=== PATIENT | female | born 1945 | race Caucasian/White ===

== ENCOUNTER 2016-10-12 23:37 | Inpatient (IN) | payer OTHER ==
[~2016-10-12] VITALS: Ht 167.6 cm; Wt 49.0 kg
[~2016-10-12 23:37] MED LIST: ATROVENT INH S2.5 ML NEB; BENADRYL25 MG PO; DALIRESP500 MCG PO; HABITROL 21 MG P1 EA TOP; LEVAQUIN750 MG PO; MEDROL DOSEPAK 24 MG PO; NEURONTIN600 MG PO; OXYCODONE HCL10 MG PO; PRILOSEC20 MG PO; PROTONIX40 MG PO; PROZAC40 MG PO; SPIRIVA HANDIH18 MCG INH; SPIRIVA RESPIMAT4 GM INH; SYMBICORT 16010.2 GM INH; VENTOLIN/PROVE0.5 ML NEB; VITAMIN D400 UNIT PO; VITAMIN E400 UNI1 PO; ZESTRIL20 MG PO; ZITHROMAX250 MG PO
[2016-10-13 02:46] LABS: HEMOGLOBIN 9.5 gm/dl (12.3-15.3); RED BLOOD COUNT 3.14 M/UL (4.00-5.10); WHITE BLOOD COUNT 12.9 K/UL (4.5-11.0)
[2016-10-13 03:47] LABS: BUN/CREATININE RATIO 35 (0-10)
[2016-10-13] MEDS ORDERED: GLEEVEC PO (12:41)
[2016-10-13] MEDS ORDERED: ROXICODONE15 MG PO (12:41)
[2016-10-14 06:28] LABS: HEMOGLOBIN 9.1 gm/dl (12.3-15.3); RED BLOOD COUNT 3.07 M/UL (4.00-5.10); WHITE BLOOD COUNT 11.6 K/UL (4.5-11.0)
[2016-10-14 07:03] LABS: BUN/CREATININE RATIO 43 (0-10)
[2016-10-15 06:47] LABS: BUN/CREATININE RATIO 40 (0-10)
[2016-10-15 06:56] LABS: WHITE BLOOD COUNT 10.1 K/UL (4.5-11.0)
[2016-10-15 06:58] LABS: RED BLOOD COUNT 2.18 M/UL (4.00-5.10)
[2016-10-15 07:03] LABS: HEMOGLOBIN 6.6 gm/dl (12.3-15.3)
[2016-10-16 05:48] LABS: WHITE BLOOD COUNT 8.2 K/UL (4.5-11.0)
[2016-10-16 05:49] LABS: RED BLOOD COUNT 3.28 M/UL (4.00-5.10)
[2016-10-16 05:50] LABS: HEMOGLOBIN 9.6 gm/dl (12.3-15.3)
[2016-10-16 05:59] LABS: BUN/CREATININE RATIO 40 (0-10)
[2016-10-17 06:29] LABS: HEMOGLOBIN 8.5 gm/dl (12.3-15.3); WHITE BLOOD COUNT 8.4 K/UL (4.5-11.0)
[2016-10-17 06:30] LABS: RED BLOOD COUNT 2.88 M/UL (4.00-5.10)
[2016-10-17 06:53] LABS: BUN/CREATININE RATIO 28 (0-10)
[2016-10-18 04:27] LABS: HEMOGLOBIN 7.9 gm/dl (12.3-15.3); RED BLOOD COUNT 2.7 M/UL (4.00-5.10); WHITE BLOOD COUNT 7.5 K/UL (4.5-11.0)
[2016-10-18 04:44] LABS: BUN/CREATININE RATIO 25 (0-10)
[2016-10-19 05:53] LABS: HEMOGLOBIN 7.9 gm/dl (12.3-15.3); RED BLOOD COUNT 2.7 M/UL (4.00-5.10); WHITE BLOOD COUNT 6.7 K/UL (4.5-11.0)
[2016-10-20 05:55] LABS: HEMOGLOBIN 8.4 gm/dl (12.3-15.3)
[2016-12-19] MEDS ORDERED: BENADRYL 25MG C25 MG PO (10:02)
[2016-12-19] MEDS ORDERED: LOVENOX SY40 MG/0.4 SQ (10:03)
[2016-12-19] MEDS ORDERED: PHENERGAN 25 MG25 M1 PO (10:03)
[2016-12-19] MEDS ORDERED: NEURONTIN 300300 MG PO (10:04)
[2016-12-19] MEDS ORDERED: HYDROCODON-ACE1 EAC6 PO (10:34)
[2016-12-19] MEDS ORDERED: PROTONIX40 MG PO (10:34)
[2016-12-19] MEDS ORDERED: DALIRESP500 MCG PO (10:36)
[2016-12-19] MEDS ORDERED: DURAGESIC 50 MCG1 EA TD (10:36)
[2016-12-30] MEDS ORDERED: LOPRESSOR 25 MG25 MG PO (18:25)
== END 2016-10-20 21:07 | DRG 480 ==
LOC: ER1 23:37 → MED SURG 4 10-13 03:59 → M/S 10-13 03:59 → ZEROF 10-13 03:59 → MED SURG 4 10-13 07:50 → ZEROF 10-14 16:29 → MED SURG 4 10-14 16:29 → M/S 10-14 20:25
PROVIDERS: Family Medicine; Internal Medicine; Orthopaedic Surgery; Physician Assistant; ADMIT Hospitalist
PROC: 2W6RXZZ Traction of Left Lower Leg (ICD-10-PCS; principal; 2016-10-14 17:15)
PROC: 0QS706Z Reposition Left Upper Femur with Intramedullary Internal Fixation Device, Open Approach (ICD-10-PCS; principal; 2016-10-14 17:15)
PROC: 0PSJ34Z Reposition Left Radius with Internal Fixation Device, Percutaneous Approach (ICD-10-PCS; 2016-10-15)
PROC: 30233N1 Transfusion of Nonautologous Red Blood Cells into Peripheral Vein, Percutaneous Approach (ICD-10-PCS; 2016-10-15)
DX: S52.612A Displaced fracture of left ulna styloid process, initial encounter for closed fracture (principal); S72.142A Displaced intertrochanteric fracture of left femur, initial encounter for closed fracture; J96.12 Chronic respiratory failure with hypercapnia; C90.00 Multiple myeloma not having achieved remission; J96.11 Chronic respiratory failure with hypoxia; D62 Acute posthemorrhagic anemia; J44.9 Chronic obstructive pulmonary disease, unspecified; M79.672 Pain in left foot; F17.210 Nicotine dependence, cigarettes, uncomplicated; W18.39XA Other fall on same level, initial encounter; Y93.89 Activity, other specified; Y92.003 Bedroom of unspecified non-institutional (private) residence as the place of occurrence of the external cause; E83.42 Hypomagnesemia; R53.81 Other malaise; D53.9 Nutritional anemia, unspecified; E87.6 Hypokalemia; R25.1 Tremor, unspecified; I48.0 Paroxysmal atrial fibrillation; F41.9 Anxiety disorder, unspecified; I27.2 Other secondary pulmonary hypertension; I10 Essential (primary) hypertension; K57.30 Diverticulosis of large intestine without perforation or abscess without bleeding; K21.9 Gastro-esophageal reflux disease without esophagitis; I07.1 Rheumatic tricuspid insufficiency; Z72.3 Lack of physical exercise; Z86.73 Personal history of transient ischemic attack (TIA), and cerebral infarction without residual deficits; Z80.1 Family history of malignant neoplasm of trachea, bronchus and lung; Z82.49 Family history of ischemic heart disease and other diseases of the circulatory system; Z88.6 Allergy status to analgesic agent; Z88.5 Allergy status to narcotic agent; Z79.899 Other long term (current) drug therapy; Z91.14 Patient's other noncompliance with medication regimen; Z99.81 Dependence on supplemental oxygen; Z87.19 Personal history of other diseases of the digestive system
CPT/HCPCS: 29125; 36415; 36430; 72192; 73090; 73110; 73502; 73552; 76000; 80048; 80053; 80162; 83735; 84132; 85014; 85018; 85025; 85027; 85610; 86850; 86900; 86901; 86920; 93005; 94640; 94660; 94664; 96374; 96375; 96376; 97116; 97530; 97535; 99284; C1713; C1769; J0690; J1650; J2250; J2270; J2370; J2405; J3010; J7030; J7050; J7120; P9016; Q0163; S0088

== ENCOUNTER 2016-10-24 22:27 | Observation (INO) | payer OTHER ==
[~2016-10-24] VITALS: Ht 167.6 cm; Wt 59.0 kg
[~2016-10-24 22:27] MED LIST changes: +GLEEVEC PO; +ROXICODONE15 MG PO
[2016-10-25 00:24] LABS: HEMOGLOBIN 8.3 gm/dl (12.3-15.3); RED BLOOD COUNT 2.82 M/UL (4.00-5.10); WHITE BLOOD COUNT 9.1 K/UL (4.5-11.0)
[2016-10-25 00:45] LABS: BUN/CREATININE RATIO 37 (0-10)
[2016-10-26 05:55] LABS: HEMOGLOBIN 8.4 gm/dl (12.3-15.3); RED BLOOD COUNT 2.85 M/UL (4.00-5.10); WHITE BLOOD COUNT 7.2 K/UL (4.5-11.0)
[2016-10-26 06:15] LABS: BUN/CREATININE RATIO 23 (0-10)
[2016-10-26] MEDS ORDERED: LOVENOX SY40 MG/0.4 SQ ×2 (15:37→15:39)
[2016-10-26] MEDS ORDERED: NEURONTIN 300300 MG PO (15:51)
[2016-10-26] MEDS ORDERED: IRON325 M1 PO (15:51)
[2016-10-26] MEDS ORDERED: LANOXIN TAB0.125 MG PO (15:52)
[2016-10-26] MEDS ORDERED: SYMBICORT 160-1 INHA INH (15:52)
[2016-10-26] MEDS ORDERED: KLONOPIN TAB 00.5 MG PO (15:52)
[2016-10-26] MEDS ORDERED: PERCOCET 10-321 EACH PO (15:52)
[2016-10-26] MEDS ORDERED: LOPRESSOR 25 MG25 MG PO (15:53)
[2016-10-26] MEDS ORDERED: PHENERGAN 25 MG25 M1 PO (15:53)
[2016-10-26] MEDS ORDERED: ELIQUIS5 MG PO (15:53)
[2016-10-26] MEDS ORDERED: MULTIVITAMINS1 EAC1 PO (15:53)
[2016-12-19] MEDS ORDERED: BENADRYL 25MG C25 MG PO (10:02)
[2016-12-19] MEDS ORDERED: LOVENOX SY40 MG/0.4 SQ (10:03)
[2016-12-19] MEDS ORDERED: PHENERGAN 25 MG25 M1 PO (10:03)
[2016-12-19] MEDS ORDERED: NEURONTIN 300300 MG PO (10:04)
[2016-12-19] MEDS ORDERED: PROTONIX40 MG PO (10:34)
[2016-12-19] MEDS ORDERED: HYDROCODON-ACE1 EAC6 PO (10:34)
[2016-12-19] MEDS ORDERED: DURAGESIC 50 MCG1 EA TD (10:36)
[2016-12-19] MEDS ORDERED: DALIRESP500 MCG PO (10:36)
[2016-12-30] MEDS ORDERED: LOPRESSOR 25 MG25 MG PO (18:25)
== END 2016-10-26 16:20 | disposition home or self-care (01) ==
LOC: ER1 22:27 → M/S 10-25 09:32 → ZEROF 10-25 09:32 → M/S 10-25 17:08
PROVIDERS: Student in an Organized Health Care Education/Training Program; ADMIT Legal Medicine
DX: R07.9 Chest pain, unspecified (principal); R60.0 Localized edema; S72.002A Fracture of unspecified part of neck of left femur, initial encounter for closed fracture; S52.92XA Unspecified fracture of left forearm, initial encounter for closed fracture; I48.0 Paroxysmal atrial fibrillation; J44.9 Chronic obstructive pulmonary disease, unspecified; D69.6 Thrombocytopenia, unspecified; R06.02 Shortness of breath; D64.9 Anemia, unspecified; F17.210 Nicotine dependence, cigarettes, uncomplicated; Z79.899 Other long term (current) drug therapy; Z79.891 Long term (current) use of opiate analgesic; Z87.19 Personal history of other diseases of the digestive system; Z87.01 Personal history of pneumonia (recurrent); Z86.010 Personal history of colon polyps; Z98.41 Cataract extraction status, right eye; Z98.42 Cataract extraction status, left eye; Z90.89 Acquired absence of other organs; Z88.6 Allergy status to analgesic agent; Z88.8 Allergy status to other drugs, medicaments and biological substances
CPT/HCPCS: 96372; ECHO; 36415; 71010; 78452; 80048; 80053; 80061; 80162; 81001; 82550; 82553; 83874; 84484; 85025; 85027; 85379; 85610; 85730; 87077; 87086; 87186; 93017; 93306; 93971; 94664; 96375; 97535; 99285; A9502; G0378; J0696; J1650; J2270; J2405; J2785; J7030; J7050; Q0163; Q9963

== ENCOUNTER 2016-11-06 11:13 | Inpatient (IN) | payer OTHER ==
[~2016-11-06] VITALS: Ht 167.6 cm; Wt 50.8 kg
[~2016-11-06 11:13] MED LIST changes: +ELIQUIS5 MG PO; +IRON325 M1 PO; +KLONOPIN TAB 00.5 MG PO; +LANOXIN TAB0.125 MG PO; +LOPRESSOR 25 MG25 MG PO; +LOVENOX SY40 MG/0.4 SQ; +MULTIVITAMINS1 EAC1 PO; +NEURONTIN 300300 MG PO; +PERCOCET 10-321 EACH PO; +PHENERGAN 25 MG25 M1 PO; +SYMBICORT 160-1 INHA INH
[2016-11-06 12:13] LABS: HEMOGLOBIN 8.5 gm/dl (12.3-15.3); RED BLOOD COUNT 2.82 M/UL (4.00-5.10); WHITE BLOOD COUNT 5.6 K/UL (4.5-11.0)
[2016-11-06 12:33] LABS: BUN/CREATININE RATIO 33 (0-10)
[2016-11-06] MEDS ORDERED: NORCO 7.5-3251 EACH PO (20:57)
[2016-11-07 07:06] LABS: HEMOGLOBIN 9.1 gm/dl (12.3-15.3); RED BLOOD COUNT 3.01 M/UL (4.00-5.10)
[2016-11-07 07:07] LABS: WHITE BLOOD COUNT 8.8 K/UL (4.5-11.0)
[2016-11-07 07:25] LABS: BUN/CREATININE RATIO 20 (0-10)
[2016-11-08 05:55] LABS: HEMOGLOBIN 9.2 gm/dl (12.3-15.3); RED BLOOD COUNT 3.06 M/UL (4.00-5.10); WHITE BLOOD COUNT 8.5 K/UL (4.5-11.0)
[2016-11-08 06:20] LABS: BUN/CREATININE RATIO 17 (0-10)
[2016-11-09 06:24] LABS: BUN/CREATININE RATIO 27 (0-10)
[2016-11-10] MEDS ORDERED: OMNICEF 300 MG300 MG PO (16:17)
[2016-11-10] MEDS ORDERED: OXYCODONE HCL5 MG PO (16:19)
[2016-11-10] MEDS ORDERED: ENSURE ORIGINA237 ML PO (16:53)
[2016-12-19] MEDS ORDERED: BENADRYL 25MG C25 MG PO (10:02)
[2016-12-19] MEDS ORDERED: LOVENOX SY40 MG/0.4 SQ (10:03)
[2016-12-19] MEDS ORDERED: PHENERGAN 25 MG25 M1 PO (10:03)
[2016-12-19] MEDS ORDERED: NEURONTIN 300300 MG PO (10:04)
[2016-12-19] MEDS ORDERED: HYDROCODON-ACE1 EAC6 PO (10:34)
[2016-12-19] MEDS ORDERED: PROTONIX40 MG PO (10:34)
[2016-12-19] MEDS ORDERED: DALIRESP500 MCG PO (10:36)
[2016-12-19] MEDS ORDERED: DURAGESIC 50 MCG1 EA TD (10:36)
[2016-12-30] MEDS ORDERED: LOPRESSOR 25 MG25 MG PO (18:25)
== END 2016-11-10 20:07 | DRG 190 ==
LOC: ER1 11:13 → M/S 16:30 → ZEROF 16:30 → M/S 20:25
PROVIDERS: Specialist/Technologist Athletic Trainer; ADMIT Internal Medicine Infectious Disease
DX: J44.0 Chronic obstructive pulmonary disease with (acute) lower respiratory infection (principal); J18.9 Pneumonia, unspecified organism; J96.12 Chronic respiratory failure with hypercapnia; J96.11 Chronic respiratory failure with hypoxia; C92.10 Chronic myeloid leukemia, BCR/ABL-positive, not having achieved remission; E44.0 Moderate protein-calorie malnutrition; Z68.1 Body mass index [BMI] 19.9 or less, adult; I31.3 Pericardial effusion (noninflammatory); K52.1 Toxic gastroenteritis and colitis; Z87.01 Personal history of pneumonia (recurrent); I48.0 Paroxysmal atrial fibrillation; D64.9 Anemia, unspecified; I07.1 Rheumatic tricuspid insufficiency; E83.42 Hypomagnesemia; K21.9 Gastro-esophageal reflux disease without esophagitis; K57.90 Diverticulosis of intestine, part unspecified, without perforation or abscess without bleeding; T36.0X5A Adverse effect of penicillins, initial encounter; R91.8 Other nonspecific abnormal finding of lung field; F17.210 Nicotine dependence, cigarettes, uncomplicated; F32.9 Major depressive disorder, single episode, unspecified; F41.9 Anxiety disorder, unspecified; I25.5 Ischemic cardiomyopathy; X58.XXXD Exposure to other specified factors, subsequent encounter; Z86.74 Personal history of sudden cardiac arrest; Z91.14 Patient's other noncompliance with medication regimen; Z86.010 Personal history of colon polyps; Z86.79 Personal history of other diseases of the circulatory system; Z86.73 Personal history of transient ischemic attack (TIA), and cerebral infarction without residual deficits; Y95 Nosocomial condition; Y92.009 Unspecified place in unspecified non-institutional (private) residence as the place of occurrence of the external cause; S72.002D Fracture of unspecified part of neck of left femur, subsequent encounter for closed fracture with routine healing; S62.102D Fracture of unspecified carpal bone, left wrist, subsequent encounter for fracture with routine healing; Z79.01 Long term (current) use of anticoagulants; Z99.81 Dependence on supplemental oxygen; Z79.51 Long term (current) use of inhaled steroids; Z79.891 Long term (current) use of opiate analgesic; Z79.899 Other long term (current) drug therapy; Z88.5 Allergy status to narcotic agent; Z88.6 Allergy status to analgesic agent; Z90.49 Acquired absence of other specified parts of digestive tract; Z98.890 Other specified postprocedural states; Z82.49 Family history of ischemic heart disease and other diseases of the circulatory system
CPT/HCPCS: 36415; 51702; 71010; 71020; 80048; 80053; 80162; 82550; 82553; 82803; 83735; 83874; 84132; 84484; 85025; 85379; 87040; 93005; 94640; 94664; 96361; 96365; 96375; 97116; 97530; 97535; 99285; J1335; J1650; J2405; J2543; J2550; J7050; Q9963; S0088